=== PATIENT | female | born 1990 | race Caucasian/White ===

== ENCOUNTER 2017-02-04 10:39 | Inpatient (IN) | payer MEDICAID ==
[2017-02-04] MEDS ORDERED: LIDOCAINE HCL 50 ML VIAL PERI PRN (10:43)
[2017-02-04] MEDS ORDERED: RINGERS SOLUTION,LACTATED 1,000 ML IV ONE (10:43)
[2017-02-04] MEDS ORDERED: ONDANSETRON HCL/PF 2 MG/ML VIAL IV PRN ×2 (10:43→13:50)
[2017-02-04] MEDS ORDERED: OXYTOCIN/DEXTROSE 5%-WATER 30 UNITS/500 ML BAG IV ONE ×2 (10:43→20:51)
[2017-02-04] MEDS: DEXTROSE 5%-LACTATED RINGERS 1,000 ML IV PRN ×2 (10:56→19:32)
[2017-02-04 11:05] LABS: Hematocrit 35.6 % (37.0-47.0); Hemoglobin 11.8 gm/dL (12.5-16.0); Mean Cell Volume 81.5 fl (78-100); Mean Corpuscular Hgb Conc 33.1 g/dl (32-36); Mean Platelet Volume 11.6 fl (6.0-9.5); Neutrophil # 10.3 K/mm3 (1.3-6.0); Neutrophil % 82.8 % (42-75.0); Platelet Count 216 K/mm3 (150-450); Red Blood Count 4.37 M/mm3 (4.2-5.4); Red Cell Distribution Width 14.9 % (11.5-14.0); White Blood Count 12.4 K/mm3 (4.0-10.5)
[2017-02-04 11:18] LABS: Albumin * 2.7 gm/dl (3.4-5.0); Anion Gap 14.9 mmol/L (6.8-13.8); BUN/Creatinine Ratio 11.9 (9.0-21.6); Bilirubin, Total 0.3 mg/dL (0.0-1.1); Ca. Corrected For Albumin 9.9 mg/dL (8.4-10.2); Calcium * 9.2 mg/dL (7.9-10.9); Carbon Dioxide 23.9 mmol/L (24-32.6); Potassium 3.8 mmol/L (3.4-4.6); Total Protein 6.8 gm/dL (6.2-8.2)
[2017-02-04 11:28] LABS: Random Urine Total Protein 17.6 mg/dL (0-12)
[2017-02-04 11:35] LABS: Cocaine Ur Negative (NEGATIVE); Urine Barbiturate Negative (NEGATIVE); Urine Benzodiazepines Negative (NEGATIVE); Urine Opiates Negative (NEGATIVE); Urine PCP Negative (NEGATIVE)
[2017-02-04 11:51] LABS: Urine THC Positive (NEGATIVE)
--- NOTE | 2017-02-04 12:48 | PN ---
Progess Note - Interim Narrative: 02/04/17 12:47 Patient not feeling contractions much yet Vital signs stable. Pitocin at 6 mu/min. FHT: 140 baseline, reassuring Contractions q 3-4 min Cervix:/60/-3, AROM-clear, scant fluid Impression: Intrauterine at 38 6/7 weeks, induction of labor for gestational hypertension Plan: Continue present plan
[2017-02-04] MEDS ORDERED: NALOXONE HCL 1 MG/1 ML SYRG IV PRN (13:50)
[2017-02-04] MEDS ORDERED: BUPIVACAINE HCL/0.9 % NACL/PF 250 ML EP PRN (13:50)
[2017-02-04] MEDS ORDERED: fentaNYL CITRATE/PF 50 MCG/ML AMPUL IT SCH (14:00)
--- NOTE | 2017-02-04 15:07 | OR ---
Anesthesia Procedure Note - Anesthesia Procedure Note Narrative: Vital Signs - Last Taken Temp 37.4 C 02/04/17 13:53 Pulse 87 02/04/17 13:53 Resp 18 02/04/17 13:53 BP 156/75 02/04/17 13:53 Pulse Ox 98 02/04/17 13:53 02/04/17 15:07 ANESTHESIA PROCEDURE NOTE Date of Procedure: 02/04/2017 Time of procedure: 1400. Performed by: Enrico Jones CRNA [place] Guide: None. Preprocedure diagnosis: Active labor. Post procedure diagnosis: Same. Procedure: Insertion of labor epidural. Indications: The patient is a 26 -year-old multigravida female in active labor requesting labor epidural for pain management. Findings: See below. Details of the procedure: The patient was placed in a sitting position. Back was prepped with DuraPrep. Patient was then draped in a sterile fashion. Lidocaine 1% was infiltrated to the skin and subcutaneous tissues at the level of the L3 4 interspace. The epidural space was identified using a 18-gauge Tuohy needle with [id number] technique. 20 mcg fentanyl was given intrathecally using a 27 ga. spinal needle. Epidural catheter was inserted without difficulty. Negative test dose was elicited using 5 mL of 1.5% preservative-free lidocaine plus epinephrine 1 200,000. The epidural catheter was then taped and secured in place. EBL: Minimal. Fluids: N/A. Specimen: N/A. Post procedure condition: The patient tolerated the procedure well. No complications were noted. Thank you for this consultation. Cullen CRNA
[2017-02-04] MEDS ORDERED: SENNOSIDES 8.6 MG TABLET PO PRN (20:51)
[2017-02-04] MEDS ORDERED: HYDROCORTISONE 30 APPL TUBE TP PRN (20:51)
[2017-02-04] MEDS ORDERED: BISACODYL 10 MG SUPP.RECT RC PRN (20:51)
[2017-02-04] MEDS ORDERED: oxyCODONE HCL/ACETAMINOPHEN 1 TAB TABLET PO PRN (20:51)
[2017-02-04] MEDS ORDERED: BENZOCAINE/MENTHOL 81 SPRAY CAN TP PRN (20:51)
[2017-02-04] MEDS ORDERED: GLYCERIN/WITCH HAZEL LEAF 40 APPL BOX TP PRN (20:51)
[2017-02-04] MEDS ORDERED: METOCLOPRAMIDE HCL 5 MG/ML VIAL IV PRN (20:52)
--- NOTE | 2017-02-04 21:00 | OR ---
Operative Report - Dictated Report Narrative: Spontaneous vaginal delivery of viable female at 2032 on 02/04/2017 with Apgars 9 and 9, weighing 3704 g in DANIELLE position with left hand presenting at chin. Nuchal cord 1. Cord clamping delayed approximately 1 minute Placenta delivered complete, intact, with three vessel cord Estimated blood loss: less than 50 ml Lacerations: None
[2017-02-04] MEDS: IBUPROFEN 800 MG TABLET PO PRN (21:20)
[2017-02-04] MEDS: oxyCODONE HCL/ACETAMINOPHEN 1 TAB TABLET PO PRN (21:20)
[2017-02-04] MEDS ORDERED: diphenhydrAMINE HCL 50 MG/ML VIAL IV ONE (21:30)
[2017-02-04] MEDS: DOCUSATE SODIUM 100 MG CAPSULE PO SCH (23:40)
[2017-02-04] MEDS: FAMOTIDINE 20 MG TABLET PO SCH (23:40)
[2017-02-05] MEDS: oxyCODONE HCL/ACETAMINOPHEN 1 TAB TABLET PO PRN ×4 (02:06→22:45)
[2017-02-05] MEDS: DOCUSATE SODIUM 100 MG CAPSULE PO SCH ×3 (07:57→20:22)
[2017-02-05] MEDS: IBUPROFEN 800 MG TABLET PO PRN ×2 (07:57→19:31)
[2017-02-05] MEDS ORDERED: RHO(D) IMMUNE GLOBULIN 300 MCG DISP.SYRIN IM ONE (08:47)
--- NOTE | 2017-02-05 08:53 | PN ---
Subjective - Date and Time Seen Date: 02/05/17 Time: 08:52 Objective - Vitals Vitals: Last Vital Signs Temp 36.7 C 02/05/17 08:25 Pulse 80 02/05/17 08:25 Resp 18 02/05/17 08:25 BP 131/72 02/05/17 08:25 Pulse Ox 96 02/05/17 08:25 Patient denies complaints. Lochia wnl Abdomen - soft, nontender Uterus - firm, at umbilicus - 1 No calf tenderness Impression: day #1 - s/p spontaneous vaginal delivery. Gestational hypertension-resolved Plan: Continue routine care - Abnormal Lab Findings Abnormal Lab Findings: Abnormal Lab Results 02/04/17 02/04/17 02/04/17 Range/Units 10:48 10:48 11:00 WBC 12.4 H (4.0-10.5) K/mm3 Hgb 11.8 L (12.5-16.0) gm/dL Hct 35.6 L (37.0-47.0) % RDW 14.9 H (11.5-14.0) % MPV 11.6 H (6.0-9.5) fl Immature Gran % (Auto) 0.50 H (0.001-0.429) % Immature Gran # (Auto) 0.06 H (0.000-0.0310) K/mm3 Neutrophils % 82.8 H (42-75.0) % Lymphocytes % 9.0 L (20-51) % Neutrophils # 10.3 H (1.3-6.0) K/mm3 Lymphocytes # 1.1 L (1.5-3.5) k/mm3 Carbon Dioxide (24-32.6) mmol/L Anion Gap (6.8-13.8) mmol/L Est GFR (Non-Af Amer) (60-130) mL/min Albumin (3.4-5.0) gm/dl U Random Total Protein 17.6 H (0-12) mg/dL Urine Marijuana (THC) Positive H (NEGATIVE) 02/04/17 Range/Units 11:00 WBC (4.0-10.5) K/mm3 Hgb (12.5-16.0) gm/dL Hct (37.0-47.0) % RDW (11.5-14.0) % MPV (6.0-9.5) fl Immature Gran % (Auto) (0.001-0.429) % Immature Gran # (Auto) (0.000-0.0310) K/mm3 Neutrophils % (42-75.0) % Lymphocytes % (20-51) % Neutrophils # (1.3-6.0) K/mm3 Lymphocytes # (1.5-3.5) k/mm3 Carbon Dioxide 23.9 L (24-32.6) mmol/L Anion Gap 14.9 H (6.8-13.8) mmol/L Est GFR (Non-Af Amer) 131 H (60-130) mL/min Albumin 2.7 L (3.4-5.0) gm/dl U Random Total Protein (0-12) mg/dL Urine Marijuana (THC) (NEGATIVE)
[2017-02-05] MEDS: PRENATAL VIT#96/FERROUS FUM/FA 1 TAB TABLET PO SCH (08:57)
[2017-02-05] MEDS: FAMOTIDINE 20 MG TABLET PO SCH ×3 (08:57→20:17)
[2017-02-05] MEDS: [UNRECOGNIZED DRUG - OTHER] TP SCH ×2 (08:58→20:16)
[2017-02-06] MEDS: DOCUSATE SODIUM 100 MG CAPSULE PO SCH ×2 (06:53→10:09)
[2017-02-06] MEDS: oxyCODONE HCL/ACETAMINOPHEN 1 TAB TABLET PO PRN ×2 (06:53→11:12)
[2017-02-06] MEDS: IBUPROFEN 800 MG TABLET PO PRN (06:54)
[2017-02-06] MEDS: FAMOTIDINE 20 MG TABLET PO SCH (09:21)
[2017-02-06] MEDS: PRENATAL VIT#96/FERROUS FUM/FA 1 TAB TABLET PO SCH (09:21)
--- NOTE | 2017-02-06 09:52 | PN ---
Subjective - Date and Time Seen Date: 02/06/17 Time: 09:51 Objective - Vitals Vitals: Last Vital Signs Temp 36.9 C 02/06/17 08:16 Pulse 75 02/06/17 08:16 Resp 20 02/06/17 08:16 BP 151/87 02/06/17 08:16 Pulse Ox 97 02/06/17 08:16 Patient denies complaints. Lochia wnl Abdomen - soft, nontender Uterus - firm, at umbilicus - 2 No calf tenderness Impression: day #2 - s/p spontaneous vaginal delivery. Gestational hypertension-stable. Strong history of depression Plan: Routine discharge instructions. depression and preeclampsia precautions. We'll start on antidepressant to prevent depression and have patient follow up in 1 week to assess removed and blood pressure.
[2017-02-06 11:20] VITALS: BP 142/75
== END 2017-02-06 11:35 | disposition home or self-care (01) | DRG 775 ==
LOC: OB 10:39
PROVIDERS: ADMIT Obstetrics & Gynecology; ATTEND Obstetrics & Gynecology
PROC: 10E0XZZ Delivery of Products of Conception, External Approach (ICD-10-PCS; principal; 2017-02-04)
PROC: 10907ZC Drainage of Amniotic Fluid, Therapeutic from Products of Conception, Via Natural or Artificial Opening (ICD-10-PCS; 2017-02-04)
PROC: 3E033VJ Introduction of Other Hormone into Peripheral Vein, Percutaneous Approach (ICD-10-PCS; 2017-02-04)
PROC: 4A1HXCZ Monitoring of Products of Conception, Cardiac Rate, External Approach (ICD-10-PCS; 2017-02-04)
PROC: 3E0S3CZ (ICD-10-PCS; 2017-02-04)
DX: O13.4 Gestational [pregnancy-induced] hypertension without significant proteinuria, complicating childbirth (principal); Z68.42 Body mass index [BMI] 45.0-49.9, adult; O69.81X0 Labor and delivery complicated by cord around neck, without compression, not applicable or unspecified; O99.214 Obesity complicating childbirth; E66.01 Morbid (severe) obesity due to excess calories; Z3A.39 39 weeks gestation of pregnancy; Z37.0 Single live birth
CPT/HCPCS: 36415; 59025; 80053; 80307; 82570; 84156; 85025; 85460; J2790

== ENCOUNTER 2019-01-01 20:11 | Observation (INO) ==
[2019-01-01] MEDS ORDERED: LABETALOL HCL 5 MG/ML VIAL IV PRN (21:05)
[2019-01-01 21:08] LABS: Hematocrit 35.3 % (37.0-47.0); Hemoglobin 11.1 gm/dL (12.5-16.0); Mean Cell Volume 85.9 fl (78-100); Mean Corpuscular Hgb Conc 31.4 g/dl (32-36); Mean Platelet Volume 10.9 fl (8-12.5); Neutrophil # 8.4 K/mm3 (1.3-6.0); Neutrophil % 74.4 % (42-75.0); Platelet Count 205 K/mm3 (150-450); Red Blood Count 4.11 M/mm3 (4.2-5.4); Red Cell Distribution Width 14.7 % (11.5-14.0); White Blood Count 11.2 K/mm3 (4.0-10.5)
[2019-01-01] MEDS ORDERED: LABETALOL HCL 5 MG/ML VIAL IV STA (21:18)
[2019-01-01 21:21] LABS: Albumin * 2.7 gm/dl (3.4-5.0); Anion Gap 13.6 mmol/L (6.8-13.8); BUN/Creatinine Ratio 18.5 (9.0-21.6); Bilirubin, Total 0.2 mg/dL (0.0-1.1); Ca. Corrected For Albumin 9.8 mg/dL (8.4-10.2); Calcium * 9.1 mg/dL (7.9-10.9); Carbon Dioxide 24.1 mmol/L (24-32.6); Potassium 3.7 mmol/L (3.4-4.6); Total Protein 6.9 gm/dL (6.2-8.2)
[2019-01-01 21:38] LABS: Random Urine Total Protein Less than 6.0 mg/dL (0-12)
[2019-01-01] MEDS ORDERED: RINGER'S SOLUTION,LACTATED 1,000 ML IV PRN (21:48)
[2019-01-01] MEDS ORDERED: BETAMETHASONE ACETATE,SOD PHOS 6 MG/ML VIAL IM ONE (22:00)
[2019-01-01] MEDS ORDERED: LABETALOL HCL 100 MG TABLET PO ONE (22:00)
[2019-01-01] MEDS ORDERED: HYDROmorphone HCL 2 MG/ML VIAL IV ONE (22:00)
[2019-01-01] MEDS: ONDANSETRON HCL/PF 2 MG/ML VIAL IV PRN (22:13)
--- NOTE | 2019-01-01 22:20 | HP ---
Chief Complaint - Chief Complaint Date of Service: 01/01/19 Time of Service: 22:09 Chief Complaint: severe RUQ pain History of Present Illness: 28 yo at 34 weeks presents to L&D complaining of severe RUQ pain associated with nausea that started earlier today and has progressively worsened. Patient states pain was intermittent earlier today but became constant around 1300 today shortly after eating a cheeseburger. Pain started in RUQ/epigastric region and radiates down the entire right side. Worse with movement. Denies fever, chills, headache, visual changes, or edema. Admits to mild cramping but denies LOF, vaginal bleeding, or contractions. Patient was seen earlier today for decreased movement with a NR NST and BPP 01/07. Repeat BPP a few hours later was 07/09. This complicated by CHTN, anemia, obesity, pelviectasis, heart arrthymia. Rh negative Rubella immune GBS pending Medical History (Last Reviewed 01/01/19 @ 22:14 by Poncho Mercedes DO) Acne Anemia w/ Depression Fracture of foot bone, left, open Onset Date: 06/21/14 fell 3.5 stories off of a ladder Gestational hypertension Onset Date: ~2016 Morbid obesity depression X3 Chlamydia Onset Date: ~2014 Short interval between pregnancies affecting , antepartum Onset Date: ~07/19/16 Surgical History: Surgical History (Last Reviewed 01/01/19 @ 22:14 by Poncho Mercedes DO) History of foot surgery Left foot Family History: Family History (Last Reviewed 01/01/19 @ 22:14 by Poncho Mercedes DO) Father Diabetes Hypertension ADHD Mother Diabetes Hypertension Social History: Preferred Language [place] Smoking Status Former smoker (Last Updated 01/01/19 @ 11:02 by Maisha Brown MD) No Social History Section defined Immunizations: IMMUNIZATION HX Immunizations Up to Date Yes History of Influenza Vaccine No Hx Pneumococcal Vaccination No Allergies/Adverse Reactions: Allergies Allergy/AdvReac Type Severity Reaction Status Date / Time Sulfa (Sulfonamide Allergy Severe Shortness Verified 01/01/19 10:17 Antibiotics) of Breath tree and shrub pollen Allergy Intermediate Sneezing Verified 01/01/19 10:17 ethinyl estradiol AdvReac Intermediate Severe Verified 01/01/19 10:17 [From Ortho Tri-Cyclen (28)] heavy bleeding norgestimate AdvReac severe Verified 01/01/19 10:17 [From Ortho Tri-Cyclen (28)] heavy bleeding Home Medications: HOME MEDICATIONS benzoyl peroxide 10 % topical gel 1 applic TP DAILY PRN 07/24/18 [Last Taken Unknown] acetaminophen 500 mg tablet 1,000 mg PO Q6H PRN tab 08/19/18 [Last Taken Unknown] calcium carbonate 200 mg calcium (500 mg) chewable tablet 600 mg PO 8XD PRN tab 11/20/18 [Last Taken Unknown] Vits96/Iron Fum/Folic [ S] 1 tab PO DAILY 12/14/18 [Last Taken Unknown] Exam - Exam Vital Signs: Vital Signs - Last Taken Temp 36.9 C 01/01/19 20:39 Pulse 89 01/01/19 21:26 Resp 22 H 01/01/19 20:39 BP 181/90 H 01/01/19 21:20 Pulse Ox 98 01/01/19 20:39 Constitutional: Present: Alert, Oriented x3, Cooperative, Moderate distress ENT Exam: Present: hearing grossly normal Back Exam: Present: CVA tenderness (R) Breasts: Present: Exam deferred Respiratory: Present: lungs clear, no respiratory distress Cardiovascular/Chest: Present: regular rate, rhythm, no edema, no murmur Abdomen: Present: soft, tender - Right side, worse at RUQ, rebound tenderness, CVA tenderness, positive Crane sign /Rectal: Present: Other - cervix - cl/th/high Extremity: Present: non-tender, no calf tenderness Skin Exam: Present: normal color, warm/dry, no cyanosis Neurologic: Present: alert, normal mood/affect, oriented x 3, other - DTR 3/4, no clonus Appearance: Present: appropriate insight, other - appears very uncomfortable, writhing in pain Eye contact: Present: good eye contact Thoughts: Present: normal thought pattern Diagnostic Studies: Abnormal Lab Results 01/01/19 01/01/19 01/01/19 Range/Units 21:02 21:02 21:05 WBC 11.2 H (4.0-10.5) K/mm3 RBC 4.11 L (4.2-5.4) M/mm3 Hgb 11.1 L (12.5-16.0) gm/dL Hct 35.3 L (37.0-47.0) % MCHC 31.4 L (32-36) g/dl RDW 14.7 H (11.5-14.0) % Immature Gran % (Auto) 0.70 H (0.001-0.429) % Immature Gran # (Auto) 0.08 H (0.000-0.0310) K/mm3 Lymphocytes % 16.4 L (20-51) % Neutrophils # 8.4 H (1.3-6.0) K/mm3 Est GFR (Non-Af Amer) 143 H (60-130) mL/min Albumin 2.7 L (3.4-5.0) gm/dl Ur Random Creatinine 31.9 L (60-200) mg/dL Laboratory Results WBC 11.2 K/mm3 (4.0-10.5) H 01/01/19 21:02 RBC 4.11 M/mm3 (4.2-5.4) L 01/01/19 21:02 Hgb 11.1 gm/dL (12.5-16.0) L 01/01/19 21:02 Hct 35.3 % (37.0-47.0) L 01/01/19 21:02 MCV 85.9 fl (78-100) 01/01/19 21:02 MCH 27.0 pg (27-31) 01/01/19 21:02 MCHC 31.4 g/dl (32-36) L 01/01/19 21:02 RDW 14.7 % (11.5-14.0) H 01/01/19 21:02 Plt Count 205 K/mm3 (150-450) 01/01/19 21:02 MPV 10.9 fl (8-12.5) 01/01/19 21:02 Immature Gran % (Auto) 0.70 % (0.001-0.429) H 01/01/19 21:02 Immature Gran # (Auto) 0.08 K/mm3 (0.000-0.0310) H 01/01/19 21:02 Neutrophils % 74.4 % (42-75.0) 01/01/19 21:02 Lymphocytes % 16.4 % (20-51) L 01/01/19 21:02 Monocytes % 6.9 % (0.0-9) 01/01/19 21:02 Eosinophils % 1.4 % (0.0-3.0) 01/01/19 21:02 Basophils % 0.2 % (0.0-1.0) 01/01/19 21:02 Nucleated RBC % 0.0 k/mm3 (0-1) 01/01/19 21:02 Neutrophils # 8.4 K/mm3 (1.3-6.0) H 01/01/19 21:02 Lymphocytes # 1.84 k/mm3 (1.5-3.5) 01/01/19 21:02 Monocytes # 0.8 k/mm3 (0.0-1.0) 01/01/19 21:02 Eosinophils # 0.2 k/mm3 (0.0-0.7) 01/01/19 21:02 Absolute Basophils 0.0 k/mm3 (0.0-0.1) 01/01/19 21:02 Sodium 137 mmol/L (132-142) 01/01/19 21:02 Plasma Sodium 137 mmol/L (130-142) 01/01/19 21:02 Potassium 3.7 mmol/L (3.4-4.6) 01/01/19 21:02 Chloride 103 mmol/L (97-106) 01/01/19 21:02 Carbon Dioxide 24.1 mmol/L (24-32.6) 01/01/19 21:02 Anion Gap 13.6 mmol/L (6.8-13.8) 01/01/19 21:02 BUN 10 mg/dL (3-23) 01/01/19 21:02 Creatinine 0.54 mg/dL (0.4-1.4) 01/01/19 21:02 Est GFR (Non-Af Amer) 143 mL/min (60-130) H 01/01/19 21:02 BUN/Creatinine Ratio 18.5 (9.0-21.6) 01/01/19 21:02 Random Glucose 100 mg/dL (70-110) 01/01/19 21:02 Calcium 9.1 mg/dL (7.9-10.9) 01/01/19 21:02 Calcium Adj for Albumin 9.8 mg/dL (8.4-10.2) 01/01/19 21:02 Total Bilirubin 0.2 mg/dL (0.0-1.1) 01/01/19 21:02 AST 21 U/L (0-48) 01/01/19 21:02 ALT 21 U/L (19-67) 01/01/19 21:02 Alkaline Phosphatase 106 U/L (50-170) 01/01/19 21:02 Total Protein 6.9 gm/dL (6.2-8.2) 01/01/19 21:02 Albumin 2.7 gm/dl (3.4-5.0) L 01/01/19 21:02 Ur Random Creatinine 31.9 mg/dL (60-200) L 01/01/19 21:05 U Random Total Protein Less than 6.0 mg/dL (0-12) 01/01/19 21:05 U [place] Prot/Creat Ratio 188 mg/gm (0-199) 01/01/19 21:05 NST reactive RUQ u/s - no stones are wall thickening (preliminary) Assessment/Plan - Assessment/Plan (1) Gallbladder attack Assessment: Admit 23h observation with IV fluids, NPO, pain meds PRN. Avoid greasy/spicy foods. Problem: Acute (2) Elevated blood pressure complicating in third trimester, antepartum Problem: Acute (3) Chronic hypertension during Problem: Chronic (4) Maternal morbid obesity in third trimester, antepartum Problem: Chronic
[2019-01-01 22:39] LABS: Urine Bilirubin Negative (NEGATIVE); Urine Blood Negative /ul (NEGATIVE); Urine Ketone Negative (NEGATIVE); Urine Nitrite Negative (NEGATIVE); Urine Protein Negative (NEGATIVE); Urine Urobilinogen Normal (NORMAL)
[2019-01-01 22:44] LABS: Cocaine Ur Negative (NEGATIVE); Urine Barbiturate Negative (NEGATIVE); Urine Benzodiazepines Negative (NEGATIVE); Urine Opiates Negative (NEGATIVE); Urine PCP Negative (NEGATIVE); Urine THC Negative (NEGATIVE)
[2019-01-01 22:46] LABS: Urine Amorphous Sediment TRACE (NONE-FEW); Urine Appearance Clear (CLEAR); Urine Bacteria 3+; Urine Color Pale Yellow; Urine RBC None Seen /hpf (0-5); Urine WBC None Seen /hpf (0-5)
[2019-01-01] MEDS: DEXTROSE 5%-LACTATED RINGERS 1,000 ML IV PRN (23:20)
[2019-01-02] MEDS ORDERED: ACETAMINOPHEN 500 MG TABLET PO ONE (02:50)
[2019-01-02] MEDS: ONDANSETRON HCL/PF 2 MG/ML VIAL IV PRN (03:00)
[2019-01-02] MEDS: DEXTROSE 5%-LACTATED RINGERS 1,000 ML IV PRN ×3 (07:26→23:55)
--- NOTE | 2019-01-02 14:01 | PN ---
Subjective - Date and Time Seen Date: 01/02/19 Time: 13:47 Subjective Narrative: No appetite. Minimal nausea. Pain still in RUQ, but improved somewhat. New mild pain in LLQ of uterus where fetus keeps kicking. Objective - Review of Systems Generalized/Overall Review: Denies: Chills, Fever EENTM: Reports: No Symptoms Reported Respiratory: Reports: No Symptoms Reported Cardiac: Reports: No Symptoms Reported Abdominal: Reports: Nausea, Abdominal Pain Genitourinary Symptoms: Reports: No Symptoms Reported Musculoskeletal Complaints: Reports: No Symptoms Reported Neurological: Reports: No Symptoms Reported Skin: Reports: No Symptoms Reported Endocrine: Reports: No Symptoms Reported - Vitals Vitals: Last Vital Signs Temp 37 C 01/02/19 08:50 Pulse 83 01/02/19 09:06 Resp 18 01/02/19 08:50 BP 134/68 01/02/19 08:50 Pulse Ox 95 01/02/19 08:50 - Abnormal Lab Findings Abnormal Lab Findings: Abnormal Lab Results 01/01/19 01/01/19 01/01/19 Range/Units 21:02 21:02 21:05 WBC 11.2 H (4.0-10.5) K/mm3 RBC 4.11 L (4.2-5.4) M/mm3 Hgb 11.1 L (12.5-16.0) gm/dL Hct 35.3 L (37.0-47.0) % MCHC 31.4 L (32-36) g/dl RDW 14.7 H (11.5-14.0) % Immature Gran % (Auto) 0.70 H (0.001-0.429) % Immature Gran # (Auto) 0.08 H (0.000-0.0310) K/mm3 Lymphocytes % 16.4 L (20-51) % Neutrophils # 8.4 H (1.3-6.0) K/mm3 Est GFR (Non-Af Amer) 143 H (60-130) mL/min Albumin 2.7 L (3.4-5.0) gm/dl Urine Bacteria (NONE) Ur Random Creatinine 31.9 L (60-200) mg/dL 01/01/19 Range/Units 21:05 WBC (4.0-10.5) K/mm3 RBC (4.2-5.4) M/mm3 Hgb (12.5-16.0) gm/dL Hct (37.0-47.0) % MCHC (32-36) g/dl RDW (11.5-14.0) % Immature Gran % (Auto) (0.001-0.429) % Immature Gran # (Auto) (0.000-0.0310) K/mm3 Lymphocytes % (20-51) % Neutrophils # (1.3-6.0) K/mm3 Est GFR (Non-Af Amer) (60-130) mL/min Albumin (3.4-5.0) gm/dl Urine Bacteria 3+ H (NONE) Ur Random Creatinine (60-200) mg/dL NST reactive, FHT - baseline 120, good accels, moderate BTBV, no decels or contractions - EKG/Xray Findings EKG: NSR - occasional sinus arrhtymia - Exam Constitutional: Present: Oriented x3, Cooperative, No distress, Somnolent - tired/exhausted appearing ENT Exam: Present: hearing grossly normal Respiratory: Present: lungs clear, no respiratory distress Cardiovascular/Chest: Present: regular rate, rhythm, edema - b/l LE 10/03 Abdomen: Present: soft, obese, rebound tenderness - miild, localized to RUQ, positive Crane sign, other - gravid. Absent: suprapubic tenderness /Rectal: Present: Exam deferred Extremity: Present: no calf tenderness, pedal edema - 10/03 Skin Exam: Present: normal color, warm/dry, no cyanosis Neurologic: Present: normal mood/affect, oriented x 3 Appearance: Present: appropriate appearance, appropriate insight Eye contact: Present: cooperative, good eye contact, normal speech Thoughts: Present: normal thought pattern Assessment/Plan - Problems/Diagnosis (1) Gallbladder attack Problem: Acute Narrative: Keep NPO until pain improved more and patient has appetite. Continue IV fluids till taking PO well. Will start on Keflex for possible early UTI. 2nd dose of betamethasone due at 2200 today. Plan to discharge to home in am if tolerating PO and pain controlled. (2) Elevated blood pressure complicating in third trimester, antepartum Problem: Resolved (3) Chronic hypertension during Problem: Chronic (4) Maternal morbid obesity in third trimester, antepartum Problem: Chronic (5) UTI (urinary tract infection) in in third trimester Problem: Acute
[2019-01-02] MEDS: CEPHALEXIN MONOHYDRATE 500 MG CAPSULE PO SCH ×2 (14:18→21:33)
[2019-01-02] MEDS ORDERED: ACETAMINOPHEN 500 MG TABLET PO PRN (15:09)
[2019-01-02] MEDS ORDERED: BETAMETHASONE ACETATE,SOD PHOS 6 MG/ML VIAL IM ONE (22:00)
[2019-01-03 08:08] VITALS: BP 132/70
[2019-01-03] MEDS: CEPHALEXIN MONOHYDRATE 500 MG CAPSULE PO SCH (09:24)
--- NOTE | 2019-01-03 09:24 | PN ---
Subjective - Date and Time Seen Date: 01/03/19 Time: 09:14 Subjective Narrative: Tolerated clears late last night. No nausea or pain this am. Objective - Review of Systems Generalized/Overall Review: Denies: Chills, Fever EENTM: Reports: No Symptoms Reported Respiratory: Reports: No Symptoms Reported Cardiac: Reports: No Symptoms Reported Abdominal: Reports: No Symptoms Reported Genitourinary Symptoms: Reports: No Symptoms Reported Musculoskeletal Complaints: Reports: No Symptoms Reported Neurological: Reports: No Symptoms Reported Skin: Reports: No Symptoms Reported Endocrine: Reports: No Symptoms Reported - Vitals Vitals: Last Vital Signs Temp 37.6 C 01/03/19 08:03 Pulse 81 01/03/19 08:03 Resp 20 01/03/19 08:03 BP 132/70 01/03/19 08:03 Pulse Ox 96 01/03/19 08:03 NST reactive. FHT 145. This am NST still in progress. - Exam Constitutional: Present: Alert, Oriented x3, Cooperative, No distress ENT Exam: Present: hearing grossly normal Breasts: Present: Exam deferred Respiratory: Present: no respiratory distress Cardiovascular/Chest: Present: regular rate, rhythm, no edema Abdomen: Present: soft, nontender, no rebound tenderness, other - gravid /Rectal: Present: Exam deferred Extremity: Present: no pedal edema, no calf tenderness Skin Exam: Present: normal color, warm/dry, no cyanosis Neurologic: Present: alert, normal mood/affect, oriented x 3 Appearance: Present: appropriate appearance, appropriate insight Eye contact: Present: cooperative, good eye contact Thoughts: Present: normal thought pattern Assessment/Plan - Problems/Diagnosis (1) Gallbladder attack Problem: Resolved Narrative: Avoid greasy, spicy, oily foods. F/u in office next week as scheduled. PTL precautions. Continue Keflex for UTI. Call if s/s return. (2) Elevated blood pressure complicating in third trimester, antepartum Problem: Resolved (3) Chronic hypertension during Problem: Chronic (4) Maternal morbid obesity in third trimester, antepartum Problem: Chronic (5) UTI (urinary tract infection) in in third trimester Problem: Acute
--- NOTE | 2019-01-03 09:37 | DS ---
(1) Gallbladder attack Problem: Resolved (2) Elevated blood pressure complicating in third trimester, antepartum Problem: Resolved (3) Chronic hypertension during Problem: Chronic (4) Maternal morbid obesity in third trimester, antepartum Problem: Chronic (5) UTI (urinary tract infection) in in third trimester Problem: Acute Description of Stay: Patient presented on 01/01/19 to L&D with severe RUQ/RMQ abdominal pain associated with nausea and elevated blood pressures in the severe range. Severe preeclampsia and HELLP syndrome were ruled out. Patient's history and clinical picture were consistent with an acute gallbladder attack despite normal appearing gallbladder on ultrasound. She was treated with IV fluids and pain meds and kept NPO till appetite returned and pain improved. During her hospital course antepartum testing was done with NSTs q6h to assure well being. She received a course of betamethasone upon admission due to suspicion for severe preeclampsia/HELLP syndrome. By the second day of admission her pain had resolved and she was tolerating clear liquid diet. Upon admission her UA had 3+ bacteria so she was started on Keflex 500mg BID for presumed UTI - culture pending. She was discharged home on a gallbladder diet, Abx for UTI, and PTL precautions. Procedures Performed: see notes below - NST, RUQ abdominal ultrasound, Labs, IV fluid hydration Results and Findings: Lab Pending Results 01/01/19 21:02: WBC 11.2 H, RBC 4.11 L, Hgb 11.1 L, Hct 35.3 L, MCV 85.9, MCH 27.0, MCHC 31.4 L, RDW 14.7 H, Plt Count 205, MPV 10.9, Immature Gran % (Auto) 0.70 H, Immature Gran # (Auto) 0.08 H, Neutrophils % 74.4, Lymphocytes % 16.4 L, Monocytes % 6.9, Eosinophils % 1.4, Basophils % 0.2, Nucleated RBC % 0.0, Neutrophils # 8.4 H, Lymphocytes # 1.84, Monocytes # 0.8, Eosinophils # 0.2, Absolute Basophils 0.0 01/01/19 21:02: Sodium 137, Plasma Sodium 137, Potassium 3.7, Chloride 103, Carbon Dioxide 24.1, Anion Gap 13.6, BUN 10, Creatinine 0.54, Est GFR (Non-Af Amer) 143 H, BUN/Creatinine Ratio 18.5, Random Glucose 100, Calcium 9.1, Calcium Adj for Albumin 9.8, Total Bilirubin 0.2, AST 21, ALT 21, Alkaline Phosphatase 106, Total Protein 6.9, Albumin 2.7 L 01/01/19 21:05: Ur Random Creatinine 31.9 L, U Random Total Protein Less than 6.0, U [place] Prot/Creat Ratio 188 01/01/19 21:05: Urine Opiates Screen Negative, Barbiturate Screen Negative, Ur Phencyclidine Scrn Negative, Urine Amphetamine Negative, U Benzodiazepines Scrn Negative, Urine Cocaine Screen Negative, Urine Marijuana (THC) Negative 01/01/19 21:05: Urine Color Pale yellow, Urine Appearance Clear, Urine pH 6.0, Ur Specific [place] 1.020, Urine Protein Negative, Urine Glucose (UA) Negative, Urine Ketones Negative, Urine Blood Negative, Urine Nitrate Negative, Urine Bilirubin Negative, Urine Urobilinogen Normal, Ur Leukocyte Esterase Negative, Urine RBC None seen, Urine WBC None seen, Ur Epithelial Cells Trace, Amorphous Sediment Trace, Urine Bacteria 3+ H Discharge Location: Home Disposition: Home self-care Condition: Good Face to Face Encounter completed per [facility] Guidelines: Yes Discharge Activity: Activity as tolerated Discharge Diet: Low fat/chol Referrals: Poncho Mercedes DO [Primary Care Provider] - Prescriptions (Any new or edited meds): Cephalexin Monohydrate [Keflex] 500 mg PO BID #12 cap Complete Home Medications List: Complete Home Medication List: benzoyl peroxide 10 % topical gel 1 applic TP DAILY PRN 07/24/18 acetaminophen 500 mg tablet 1,000 mg PO Q6H PRN tab 08/19/18 calcium carbonate 200 mg calcium (500 mg) chewable tablet 600 mg PO 8XD PRN tab 11/20/18 Vits96/Iron Fum/Folic [ S] 1 tab PO DAILY 12/14/18 Cephalexin Monohydrate [Keflex] 500 mg PO BID #12 cap 01/03/19
== END 2019-01-03 09:24 | disposition home or self-care (01) ==
LOC: OBCLINIC 20:11 → INTOOBSV 21:03 → OB 21:03 → UNDODISIN 01-03 11:05
PROVIDERS: ADMIT Obstetrics & Gynecology; ATTEND Obstetrics & Gynecology
CPT/HCPCS: 36415; 59025; 76705; 80053; 80307; 81001; 82570; 84155; 84156; 85025; 96374; 96375; G0378; J2405

== ENCOUNTER 2019-01-26 10:57 | Inpatient (IN) ==
[2019-01-26] MEDS ORDERED: RINGER'S SOLUTION,LACTATED 1,000 ML IV ONE (11:44)
[2019-01-26] MEDS ORDERED: OXYTOCIN/DEXTROSE 5%-WATER 30 UNITS/500 ML BAG IV ONE ×2 (11:44→22:51)
[2019-01-26] MEDS ORDERED: DEXTROSE 5%-LACTATED RINGERS 1,000 ML IV PRN (11:44)
[2019-01-26 14:24] LABS: Cocaine Ur Negative (NEGATIVE); Urine Barbiturate Negative (NEGATIVE); Urine Benzodiazepines Negative (NEGATIVE); Urine Opiates Negative (NEGATIVE); Urine PCP Negative (NEGATIVE); Urine THC Negative (NEGATIVE)
--- NOTE | 2019-01-26 17:48 | HP ---
Chief Complaint - Chief Complaint Date of Service: 01/26/19 Time of Service: 17:27 Chief Complaint: non-reassuring NST History of Present Illness: 28 yo at 37 4/7 weeks presents to L&D for induction of labor due to non-reassuring tracing on NST today in office. Patient had two late decelerations on routine NST today in office for CHTN. This complicated by CHTN with worsening BPs over the past couple weeks, anemia, morbid obesity, gallbladder attack, and b/l pelviectasis. Rh negative Rubella immune GBS negative Medical History (Updated 01/03/19 @ 09:36 by Poncho Mercedes DO) Acne Anemia w/ Depression Fracture of foot bone, left, open Onset Date: 06/21/14 fell 3.5 stories off of a ladder Gestational hypertension Onset Date: ~2016 Morbid obesity depression X3 Chlamydia Onset Date: ~2014 Short interval between pregnancies affecting , antepartum Onset Date: ~07/19/16 Surgical History: Surgical History (Updated 01/03/19 @ 09:36 by Poncho Mercedes DO) History of foot surgery Left foot Family History: Family History (Updated 06/24/18 @ 13:30 by Willa Camarillo RN) Father Diabetes Hypertension ADHD Mother Diabetes Hypertension Social History: Preferred Language Czech Smoking Status Former smoker (Last Updated 01/22/19 @ 11:59 by Poncho Mercedes DO) No Social History Section defined Review Of Systems (GEN) - Review of Systems Generalized/Overall Review: Present: No Symptoms Reported EENTM: Present: No Symptoms Reported Respiratory: Present: No Symptoms Reported Cardiac: Present: No Symptoms Reported Abdominal: Present: No Symptoms Reported Genitourinary: Present: No Symptoms Reported Musculoskeletal: Present: Back Pain Neurological: Absent: Headache, Anxiety, Depressed, Emotional Problems, Seizure, Tingling Skin: Present: No Symptoms Reported Endocrine: Present: No Symptoms Reported Immunizations: IMMUNIZATION HX Immunizations Up to Date Yes History of Influenza Vaccine No Hx Pneumococcal Vaccination No Allergies/Adverse Reactions: Allergies Allergy/AdvReac Type Severity Reaction Status Date / Time Sulfa (Sulfonamide Allergy Severe Shortness Verified 01/26/19 11:35 Antibiotics) of Breath tree and shrub pollen Allergy Intermediate Sneezing Verified 01/26/19 11:35 ethinyl estradiol AdvReac Intermediate Severe Verified 01/26/19 11:35 [From Ortho Tri-Cyclen (28)] heavy bleeding norgestimate AdvReac severe Verified 01/26/19 11:35 [From Ortho Tri-Cyclen (28)] heavy bleeding Home Medications: HOME MEDICATIONS benzoyl peroxide 10 % topical gel 1 applic TP DAILY PRN 07/24/18 [Last Taken Unknown] acetaminophen 500 mg tablet 1,000 mg PO Q6H PRN tab 08/19/18 [Last Taken Unknown] calcium carbonate 200 mg calcium (500 mg) chewable tablet 600 mg PO 8XD PRN tab 11/20/18 [Last Taken Unknown] Vits96/Iron Fum/Folic [ S] 1 tab PO DAILY 12/14/18 [Last Taken Unknown] Exam - Exam Vital Signs: Vital Signs - Last Taken Temp 37.2 C 01/26/19 11:40 Pulse 81 01/26/19 11:40 Resp 18 01/26/19 11:40 BP 142/72 H 01/26/19 11:40 Pulse Ox 98 01/26/19 11:40 Constitutional: Present: Alert, Oriented x3, Cooperative, No distress ENT Exam: Present: hearing grossly normal Back Exam: Present: no CVA tenderness Breasts: Present: Exam deferred Respiratory: Present: lungs clear, no respiratory distress Cardiovascular/Chest: Present: regular rate, rhythm Abdomen: Present: soft, nontender, no rebound tenderness, other - gravid /Rectal: Present: Other - cervix - 2/50/-3 Extremity: Present: no calf tenderness, pedal edema Skin Exam: Present: normal color, warm/dry, no cyanosis Neurologic: Present: alert, normal mood/affect, oriented x 3 Appearance: Present: appropriate appearance, appropriate insight Eye contact: Present: cooperative, good eye contact Thoughts: Present: normal thought pattern Diagnostic Studies: Laboratory Results Negative (NEGATIVE) 01/26/19 Unknown Negative (NEGATIVE) 01/26/19 Unknown Ur Phencyclidine Scrn Negative (NEGATIVE) 01/26/19 Unknown Urine Amphetamine Negative (NEGATIVE) 01/26/19 Unknown U Benzodiazepines Scrn Negative (NEGATIVE) 01/26/19 Unknown Negative (NEGATIVE) 01/26/19 Unknown Negative (NEGATIVE) 01/26/19 Unknown Assessment/Plan - Assessment/Plan (1) Non-reassuring electronic monitoring tracing Assessment: Admit for pitocin induction of labor. Epidural PRN. Problem: Acute (2) Chronic hypertension during Problem: Chronic (3) Maternal morbid obesity in third trimester, antepartum Problem: Chronic (4) Gallbladder disease affecting in third trimester Problem: Acute (5) Anemia affecting Problem: Acute Qualifiers: Trimester: third trimester Qualified Code(s): O99.013 - Anemia complicating , third trimester (6) BMI 40.0-44.9, adult Assessment: Mallapati score 3 Problem: Chronic
[2019-01-26] MEDS ORDERED: BUPIVACAINE HCL/0.9 % NACL/PF 250 ML EP PRN (19:05)
[2019-01-26] MEDS ORDERED: NALOXONE HCL 1 MG/1 ML SYRG IV PRN (19:05)
[2019-01-26] MEDS ORDERED: ONDANSETRON HCL/PF 2 MG/ML VIAL IV PRN (19:05)
[2019-01-26] MEDS ORDERED: LIDOCAINE HCL/EPINEPHRINE 20 ML VIAL IJ ONE (19:06)
[2019-01-26] MEDS ORDERED: fentaNYL CITRATE/PF 50 MCG/ML AMPUL IT SCH (19:15)
--- NOTE | 2019-01-26 19:43 | ANES ---
Anesthesia Pre Procedure Eval Vitals/Labs: Last Vital Signs Temp 37.5 C 01/26/19 19:35 Pulse 86 01/26/19 19:35 Resp 16 01/26/19 19:35 BP 152/75 H 01/26/19 19:35 Pulse Ox 98 01/26/19 19:35 HOME MEDICATIONS benzoyl peroxide 10 % topical gel 1 applic TP DAILY PRN 07/24/18 [Last Taken Unknown] acetaminophen 500 mg tablet 1,000 mg PO Q6H PRN tab 08/19/18 [Last Taken Unknown] calcium carbonate 200 mg calcium (500 mg) chewable tablet 600 mg PO 8XD PRN tab 11/20/18 [Last Taken Unknown] Vits96/Iron Fum/Folic [ S] 1 tab PO DAILY 12/14/18 [Last Taken Unknown] Allergies/Adverse Reactions: Allergies Allergy/AdvReac Type Severity Reaction Status Date / Time Sulfa (Sulfonamide Allergy Severe Shortness Verified 01/26/19 11:35 Antibiotics) of Breath tree and shrub pollen Allergy Intermediate Sneezing Verified 01/26/19 11:35 ethinyl estradiol AdvReac Intermediate Severe Verified 01/26/19 11:35 [From Ortho Tri-Cyclen (28)] heavy bleeding norgestimate AdvReac severe Verified 01/26/19 11:35 [From Ortho Tri-Cyclen (28)] heavy bleeding - Planned Procedure Planned Procedure: INDUCTION/CHRONIC HTN Medication List Reviewed:: Yes Allergies Verified: Yes Medical History (Updated 01/26/19 @ 17:48 by Poncho Mercedes DO) Acne Anemia w/ Depression Fracture of foot bone, left, open Onset Date: 06/21/14 fell 3.5 stories off of a ladder Gestational hypertension Onset Date: ~2016 Morbid obesity depression X3 Chlamydia Onset Date: ~2014 Short interval between pregnancies affecting , antepartum Onset Date: ~07/19/16 Surgical History (Updated 01/03/19 @ 09:36 by Poncho Mercedes DO) History of foot surgery Left foot Family History (Updated 06/24/18 @ 13:30 by Willa Camarillo RN) Father Diabetes Hypertension ADHD Mother Diabetes Hypertension - Family Anesthesia History Family History:: no untoward family reactions to anesthesia - Airway/Neck/Teeth Within Normal Limits:: Yes Neck Exam: full range of motion - Respiratory Smoking Status: Never smoker Sleep Apnea currently treated: No Sleep Apnea by current assessment: No - Cardiovascular Tolerate Activity: Good - Anesthesia Assessment and Plan ASA Class: PS, II, E Anesthesia Type Plan: Epidural Planned difficult intubation/equipment available: No
--- NOTE | 2019-01-26 19:43 | ANES ---
Post Anesthesia Discharge - Transfer of Care Transfer of Care handoff given to nurse: Yes - Anesthesia Post Op Note Anesthesia Post Op Note: Care transferred to OB RN
--- NOTE | 2019-01-26 19:43 | ANES ---
Post Anesthesia Assessment - Vital Signs Vitals: Last Vital Signs Temp 37.5 C 01/26/19 19:35 Pulse 86 01/26/19 19:35 Resp 16 01/26/19 19:35 BP 152/75 H 01/26/19 19:35 Pulse Ox 98 01/26/19 19:35 Airway Patency: Normal - Mental Status Level Of Consciousness: Awake - Pain Level Pain Score: 2 - N/V Assessment Nausea/Vomiting Presence: None Dehydration:: No
--- NOTE | 2019-01-26 19:45 | ANES ---
Anesthesia Procedure Note Procedure Note: ANESTHESIA PROCEDURE NOTE Date of Procedure: 01/26/2019 Time of procedure: 1929. Performed by: Enrico Jones CRNA Centerless Grinding Machine Adjuster: None. Preprocedure diagnosis: Active labor. Post procedure diagnosis: Same. Procedure: Insertion of labor epidural. Indications: The patient is a 28-year-old multi female in active labor requesting labor epidural for pain management. Findings: See below. Details of the procedure: The patient was placed in a sitting position. Back was prepped with DuraPrep. Patient was then draped in a sterile fashion. Lidocaine 1% was infiltrated to the skin and subcutaneous tissues at the level of the L3 4 interspace. The epidural space was identified using a 18-gauge Tuohy needle with [id number] technique. 20 mcg fentanyl was given intrathecally using a 27 ga. spinal needle. Epidural catheter was inserted without difficulty. Negative test dose was elicited using 3 mL of 2% preservative-free lidocaine plus epinephrine 1 200,000. The epidural catheter was then taped and secured in place. EBL: Minimal. Fluids: N/A. Specimen: N/A. Post procedure condition: The patient tolerated the procedure well. No complications were noted. Thank you for this consultation. Cullen CRNA
--- NOTE | 2019-01-26 21:15 | PN ---
Progess Note - Interim Date: 01/26/19 Time: 21:12 Narrative: 01/26/19 21:12 Patient comfortable with epidural. Having some nausea. Vital signs stable. Pitocin at 6 mu/min. FHT: 120 baseline, reassuring Contractions q 2-3 min Cervix: 9/100/-2, AROM at 1652-clear Impression: Intrauterine at 37-4/7 weeks induction of labor for nonreassuring tracing Plan: Anticipate normal spontaneous vaginal delivery soon
[2019-01-26] MEDS ORDERED: BISACODYL 10 MG SUPP.RECT RC PRN (22:51)
[2019-01-26] MEDS ORDERED: oxyCODONE HCL/ACETAMINOPHEN 1 TAB TABLET PO PRN (22:51)
[2019-01-26] MEDS ORDERED: BENZOCAINE/MENTHOL 81 SPRAY CAN TP PRN (22:51)
[2019-01-26] MEDS ORDERED: GLYCERIN/WITCH HAZEL LEAF 40 APPL BOX TP PRN (22:51)
[2019-01-26] MEDS ORDERED: SENNOSIDES 8.6 MG TABLET PO PRN (22:51)
[2019-01-26] MEDS ORDERED: HYDROCORTISONE 30 APPL TUBE TP PRN (22:51)
--- NOTE | 2019-01-26 22:54 | OR ---
Operative Report - Dictated Report Narrative: Spontaneous vaginal delivery of vigorously crying viable female at 2222 on 01/26/2019 with Apgars 9 and 9, weighing 3685 g in DANIELLE position Cord clamping delayed approximately 1 minute Placenta delivered complete, intact, with three vessel cord Estimated blood loss: less than 50 ml Anesthesia: epidural Lacerations: None
[2019-01-26] MEDS: IBUPROFEN 800 MG TABLET PO PRN (23:07)
[2019-01-27] MEDS: oxyCODONE HCL/ACETAMINOPHEN 1 TAB TABLET PO PRN ×5 (00:04→22:11)
[2019-01-27] MEDS ORDERED: ACETAMINOPHEN 325 MG TABLET PO PRN (02:01)
[2019-01-27] MEDS: IBUPROFEN 800 MG TABLET PO PRN ×2 (05:56→11:49)
[2019-01-27] MEDS: PRENATAL VITS96/IRON FUM/FOLIC 1 TAB TABLET PO SCH (08:06)
[2019-01-27] MEDS: DOCUSATE SODIUM 100 MG CAPSULE PO SCH ×2 (08:06→21:12)
--- NOTE | 2019-01-27 11:51 | PN ---
Subjective - Date and Time Seen Date: 01/27/19 Time: 11:51 Objective - Vitals Vitals: Last Vital Signs Temp 36.2 C 01/27/19 11:49 Pulse 53 L 01/27/19 11:49 Resp 16 01/27/19 11:49 BP 142/66 H 01/27/19 11:49 Pulse Ox 97 01/27/19 11:49 Patient denies complaints. Lochia wnl Abdomen - soft, nontender Uterus - firm, at umbilicus, mild tenderness, No calf tenderness Impression: day #1 - s/p spontaneous vaginal delivery. Plan: Continue routine care Cauti Physician Documentation - Urinary Catheter Management Urethral (Silvestre) Date of Insertion: 01/26/19 Time of Insertion: 20:04 Date of Removal: 01/26/19 Time of Removal: 22:00 Assessment/Plan - Problems/Diagnosis (1) Non-reassuring electronic monitoring tracing Problem: Acute (2) Chronic hypertension during Problem: Chronic (3) Maternal morbid obesity in third trimester, antepartum Problem: Chronic (4) Gallbladder disease affecting in third trimester Problem: Acute (5) Anemia affecting Problem: Acute Qualifiers: Trimester: third trimester Qualified Code(s): O99.013 - Anemia complicating , third trimester (6) BMI 40.0-44.9, adult Problem: Chronic
[2019-01-27] MEDS ORDERED: RHO(D) IMMUNE GLOBULIN 1,500 UNIT SYRINGE IM ONE (12:20)
[2019-01-28] MEDS: oxyCODONE HCL/ACETAMINOPHEN 1 TAB TABLET PO PRN ×2 (02:59→09:01)
[2019-01-28] MEDS: IBUPROFEN 800 MG TABLET PO PRN (05:45)
[2019-01-28 07:53] VITALS: BP 145/79
[2019-01-28] MEDS: PRENATAL VITS96/IRON FUM/FOLIC 1 TAB TABLET PO SCH (09:00)
[2019-01-28] MEDS: DOCUSATE SODIUM 100 MG CAPSULE PO SCH (09:00)
--- NOTE | 2019-01-28 11:57 | PN ---
Subjective - Date and Time Seen Date: 01/28/19 Time: 11:54 Objective - Vitals Vitals: Last Vital Signs Temp 37.1 C 01/28/19 07:43 Pulse 70 01/28/19 07:43 Resp 16 01/28/19 07:43 BP 145/79 H 01/28/19 07:43 Pulse Ox 97 01/28/19 07:43 Patient denies complaints. Bottle feeding Lochia wnl Abdomen - soft, nontender Uterus - firm, at umbilicus - 2 No calf tenderness Impression: day #2 - s/p spontaneous vaginal delivery. Chronic hypertension-stable. High risk for depression Plan: Routine discharge instructions. Touch base in the office in 1 week to assess emotional status. - Abnormal Lab Findings Abnormal Lab Findings: Abnormal Lab Results 01/27/19 Range/Units 07:10 Screen Positive H (Negative) Cauti Physician Documentation - Urinary Catheter Management Urethral (Silvestre) Date of Insertion: 01/26/19 Time of Insertion: 20:04 Date of Removal: 01/26/19 Time of Removal: 22:00 Assessment/Plan - Problems/Diagnosis (1) Non-reassuring electronic monitoring tracing Problem: Acute (2) Chronic hypertension during Problem: Chronic (3) Maternal morbid obesity in third trimester, antepartum Problem: Chronic (4) Gallbladder disease affecting in third trimester Problem: Acute (5) Anemia affecting Problem: Acute Qualifiers: Trimester: third trimester Qualified Code(s): O99.013 - Anemia complicating , third trimester (6) BMI 40.0-44.9, adult Problem: Chronic
== END 2019-01-28 12:15 | disposition home or self-care (01) | DRG 806 ==
LOC: OB 10:57
PROVIDERS: ADMIT Obstetrics & Gynecology; ATTEND Obstetrics & Gynecology
CPT/HCPCS: 59025; 80307; 85460; J2405; J2790